=== PATIENT | male | born 1960 | race Caucasian/White ===

== ENCOUNTER 2019-01-06 14:03 | Emergency (ER) | payer SELFPAY ==
[2019-01-06 14:17] VITALS: BP 144/88
[2019-01-06] MEDS ORDERED: Ondansetron 4 MG/2 ML SDV IVPUSH ONE (14:22)
[2019-01-06] MEDS ORDERED: Sodium Chloride 0.9% 10 ML Syringe FLUSH PRN (14:22)
[2019-01-06] MEDS ORDERED: Ketorolac 30 MG/ML SDV IVPUSH ONE (14:23)
[2019-01-06] MEDS ORDERED: HYDROmorphone 1 MG/ML Syringe IVPUSH ONE ×2 (14:23→14:38)
[2019-01-06] MEDS ORDERED: Sodium Chloride 0.9% 1,000 ML IV SCH (14:30)
--- NOTE | 2019-01-06 15:34 | EDM.PDOC ---
ED HPI GENERAL MEDICAL PROBLEM - General Chief Complaint: Genitourinary Problem Stated Complaint: POSSIBLE KIDNEY STONE Time Seen by Provider: 01/06/19 14:09 Source of Information: Reports: Patient History Limitations: Reports: No Limitations - History of Present Illness INITIAL COMMENTS - FREE TEXT/NARRATIVE: The patient presents with right flank pain and right abdominal pain. This started today. He has nausea and vomiting. He has a history of kidney stones and he feels this is a kidney stone. He has no fever, chills, cough, chest pain , or shortness of breath. He has no hematuria or dysuria. Onset: Sudden Duration: Hour(s): Location: Reports: Abdomen, Back Quality: Reports: Sharp Severity: Severe Improves with: Reports: None Worsens with: Reports: None Associated Symptoms: Reports: Nausea/Vomiting. Denies: Chest Pain, Cough, Fever /Chills, Headaches, Shortness of Breath Right Abdominal Pain Score (Numeric/FACES): 9 - Related Data Allergies Allergy/AdvReac Type Severity Reaction Status Date / Time No Known Allergies Allergy Verified 01/06/19 14:09 Home Meds: Home Meds Lisinopril [Prinivil] 10 mg PO DAILY 07/28/14 [History] Viagra. 07/28/14 [History] Anti-Depressant. 01/06/19 [History] Ondansetron [Zofran ODT] 4 mg PO Q6H PRN #20 tab.dis 01/06/19 [Rx] Tamsulosin HCl [Flomax] 0.4 mg PO DAILY #7 cap.er.24h 01/06/19 [Rx] oxyCODONE HCl/Acetaminophen [Percocet 5-325 mg Tablet] 1 - 2 each PO Q6HR PRN # 20 tablet 01/06/19 [Rx] Past Medical History Cardiovascular History: Reports: Hypertension Genitourinary History: Reports: Renal Calculus Psychiatric History: Reports: Depression Social & Family History - Recreational Drug Use Recreational Drug Use: Yes Drug Use in Last 12 Months: No ED ROS GENERAL - Review of Systems Review Of Systems: See Below Constitutional: Reports: No Symptoms HEENT: Reports: No Symptoms Respiratory: Reports: No Symptoms Cardiovascular: Reports: No Symptoms Endocrine: Reports: No Symptoms GI/Abdominal: Reports: Abdominal Pain, Nausea, Vomiting. Denies: Diarrhea : Reports: Flank Pain (right). Denies: Dysuria, Hematuria Musculoskeletal: Reports: Back Pain (Right lower back pain) ED EXAM, RENAL/ - Physical Exam Exam: See Below Exam Limited By: No Limitations General Appearance: Alert, No Apparent Distress Ears: Normal External Exam Nose: Normal Inspection Head: Atraumatic, Normocephalic Neck: Normal Inspection Respiratory/Chest: No Respiratory Distress, Lungs Clear, Normal Breath Sounds Cardiovascular: Regular Rate, Rhythm, No Edema, No Murmur GI/Abdominal: Soft, Non-Tender, No Organomegaly, No Mass Back Exam: CVA Tenderness (R) Extremities: Normal Inspection Neurological: Alert, Oriented, No Motor/Sensory Deficits Course - Vital Signs Last Recorded V/S: Last Vital Signs Temp 97.7 F 01/06/19 14:10 Pulse 91 01/06/19 14:10 Resp 17 01/06/19 14:10 BP 144/88 H 01/06/19 14:10 Pulse Ox 100 01/06/19 14:10 - Orders/Labs/Meds Orders: Active Orders 24 hr Category Date Time Status Peripheral IV Care [RC] . DIRECTED Care 01/06/19 14:22 Active Sodium Chloride 0.9% [Normal Saline] 1,000 ml Med 01/06/19 14:30 Active IV ASDIRECTED Sodium Chloride 0.9% [Saline Flush] Med 01/06/19 14:22 Active 10 ml FLUSH ASDIRECTED PRN ED Antiemetic Medication Reflex [OM.PC] Stat Oth 01/06/19 14:22 Ordered Peripheral IV Insertion Adult [OM.PC] Stat Oth 01/06/19 14:22 Ordered Medication Orders Sodium Chloride (Normal Saline) 1,000 mls @ 125 mls/hr IV ASDIRECTED PIERRE Last Admin: 01/06/19 14:31 Dose: 125 mls/hr Sodium Chloride (Saline Flush) 10 ml FLUSH ASDIRECTED PRN PRN Reason: Keep Vein Open Last Admin: 01/06/19 14:32 Dose: 10 ml Labs: Laboratory Tests 01/06/19 01/06/19 01/06/19 Range/Units 14:20 14:20 14:55 WBC 10.16 H (4.23-9.07) K/mm3 RBC 5.22 (4.63-6.08) M/mm3 Hgb 15.4 (13.7-17.5) gm/L Hct 44.0 (40.1-51.0) % MCV 84.3 (79.0-92.2) fl MCH 29.5 (25.7-32.2) pg MCHC 35.0 (32.2-35.5) g/dl RDW Std Deviation 37.1 (35.1-43.9) fL Plt Count 196 (163-337) K/mm3 MPV 10.0 (9.4-12.3) fl Neut % (Auto) 83.2 H (34.0-67.9) % Lymph % (Auto) 10.1 L (21.8-53.1) % [place] % (Auto) 3.9 L (5.3-12.2) % Eos % (Auto) 2.1 (0.8-7.0) Baso % (Auto) 0.4 (0.1-1.2) % Neut # (Auto) 8.45 H (1.78-5.38) K/mm3 Lymph # (Auto) 1.03 L (1.32-3.57) K/mm3 [place] # (Auto) 0.40 (0.30-0.82) K/mm3 Eos # (Auto) 0.21 (0.04-0.54) K/mm3 Baso # (Auto) 0.04 (0.01-0.08) K/mm3 Sodium 138 (136-145) mEq/L Potassium 3.8 (3.5-5.1) mEq/L Chloride 102 (98-107) mEq/L Carbon Dioxide 29 (21-32) mEq/L Anion Gap 10.8 (5-15) BUN 12 (7-18) mg/dL Creatinine 1.4 H (0.7-1.3) mg/dL Est Cr Clr Drug Dosing 63.49 mL/min Estimated GFR (MDRD) 52 (>60) mL/min BUN/Creatinine Ratio 8.6 L (14-18) Glucose 218 H (74-106) mg/dL Calcium 9.1 (8.5-10.1) mg/dL Total Bilirubin 1.1 H (0.2-1.0) mg/dL AST 25 (15-37) U/L ALT 52 (16-63) U/L Alkaline Phosphatase 77 (46-116) U/L Total Protein 7.6 (6.4-8.2) g/dl Albumin 3.9 (3.4-5.0) g/dl Globulin 3.7 gm/dL Albumin/Globulin Ratio 1.1 (1-2) Lipase 106 (73-393) U/L Urine Color Veronique H (Yellow) Urine Appearance Slt cloudy H (Clear) Urine pH 5.5 (5.0-8.0) Ur Specific [place] > or = 1.030 (1.005-1.030) Urine Protein 2+ H (Negative) Urine Glucose (UA) Negative (Negative) Urine Ketones Negative (Negative) Urine Occult Blood 3+ H (Negative) Urine Nitrite Negative (Negative) Urine Bilirubin 1+ H (Negative) Urine Urobilinogen 1.0 (0.2-1.0) Ur Leukocyte Esterase Negative (Negative) Urine RBC 75-100 H (0-5) /hpf Urine WBC 0-5 (0-5) /hpf Ur Epithelial Cells 0-5 (0-5) /hpf Urine Bacteria Moderate H (FEW) /hpf Urine Mucus Moderate H (FEW) /hpf Meds: Medications Generic Name Dose Route Start Last Admin Trade Name Freq PRN Reason Stop Dose Admin Sodium Chloride 1,000 mls @ 125 mls/hr 01/06/19 14:30 01/06/19 14:31 Normal Saline IV 125 mls/hr ASDIRECTED PIERRE Administration Sodium Chloride 10 ml 01/06/19 14:22 01/06/19 14:32 Saline Flush FLUSH 10 ml ASDIRECTED PRN Administration Keep Vein Open Discontinued Medications Generic Name Dose Route Start Last Admin Trade Name Fredante PRN Reason Stop Dose Admin Hydromorphone HCl 0.5 mg 01/06/19 14:23 01/06/19 14:32 Dilaudid IVPUSH 01/06/19 14:24 0.5 mg ONETIME ONE Administration Hydromorphone HCl 0.5 mg 01/06/19 14:38 Dilaudid IVPUSH 01/06/19 14:39 ONETIME ONE Ketorolac Tromethamine 30 mg 01/06/19 14:23 01/06/19 14:32 Toradol IVPUSH 01/06/19 14:24 30 mg ONETIME ONE Administration Ondansetron HCl 4 mg 01/06/19 14:22 01/06/19 14:32 Zofran IVPUSH 01/06/19 14:23 4 mg ONETIME ONE Administration - Re-Assessments/Exams Free Text/Narrative Re-Assessment/Exam: 01/06/19 15:30 I ordered an IV NS at 125mL/hr, zofran 4mg IV, dilaudid 0.5mg, labs, UA and a CT of his abdomen and pelvis without contrast. 01/06/19 16:59 His WBC was elevated at 10.16. His creatinine was elevated at 1.4. His glucose was 218. His UA has blood but no UTI. His CT shows 5mm obstructing stone within the proximal to mid right ureter. This stone located at the approximate L4-5 disc level. 3 to 4 nonobstructing calculi within the right kidney. Other incidental findings. His pain is better but not gone. I will give him some more dilaudid. Departure - Departure Time of Disposition: 17:05 Disposition: Home, Self-Care 01 Condition: Good Clinical Impression: Kidney stone, Ureteral calculus, right, Ureteral colic - Discharge Information *PRESCRIPTION DRUG MONITORING PROGRAM REVIEWED*: No *COPY OF PRESCRIPTION DRUG MONITORING REPORT IN PATIENT OUSMANE: No Prescriptions: oxyCODONE HCl/Acetaminophen [Percocet 5-325 mg Tablet] 1 - 2 each PO Q6HR PRN # 20 tablet PRN Reason: Pain Ondansetron [Zofran ODT] 4 mg PO Q6H PRN #20 tab.dis PRN Reason: Nausea\vomiting Tamsulosin HCl [Flomax] 0.4 mg PO DAILY #7 cap.er.24h Referrals: James Leon PA-C [Primary Care Provider] - Sourav Mclean MD [Physician] - 1 Week Forms: ED Department Discharge Additional Instructions: Drink plenty of fluids. Take the flomax daily. Take the percocet as needed for pain. Take the zofran as needed for nausea and vomiting. Please return if you are worse. Follow up with Dr Mclean a urologist in [place] if you are not better in a week or follow up with your urologist. - My Orders Last 24 Hours: My Active Orders 01/06/19 14:22 Peripheral IV Care [RC] . DIRECTED Sodium Chloride 0.9% [Saline Flush] 10 ml FLUSH ASDIRECTED PRN ED Antiemetic Medication Reflex [OM.PC] Stat Peripheral IV Insertion Adult [OM.PC] Stat 01/06/19 14:30 Sodium Chloride 0.9% [Normal Saline] 1,000 ml IV ASDIRECTED - Assessment/Plan Last 24 Hours: My Active Orders 01/06/19 14:22 Peripheral IV Care [RC] . DIRECTED Sodium Chloride 0.9% [Saline Flush] 10 ml FLUSH ASDIRECTED PRN ED Antiemetic Medication Reflex [OM.PC] Stat Peripheral IV Insertion Adult [OM.PC] Stat 01/06/19 14:30 Sodium Chloride 0.9% [Normal Saline] 1,000 ml IV ASDIRECTED
--- NOTE | 2019-01-06 16:09 | CT ---
CT abdomen and pelvis Technique: Multiple axial sections were obtained from above the kidneys inferiorly through the pubic symphysis. Intravenous and oral contrast was not utilized. Study has been performed as a ureteral stone protocol. Comparison: Prior CT stone protocol exam dated 06/18/13. Findings: Right sided proximal hydronephrosis is seen caused by an obstructing stone measuring 5 mm which is located within the proximal to mid ureter at the level of the L4-5 disc. No additional ureteral calculi are seen. 3 or 4 small nonobstructing calculi are seen within the right kidney. Left kidney shows no abnormal calcifications. Small parapelvic cyst is noted within the lower left kidney measuring approximately 1.3 cm. No additional abnormality is appreciated within the kidneys. Small portion of the visualized posterior lung bases are clear. Visualized noncontrast appearance of the liver and spleen appears within normal limits. Incidental note of calcified granulomas within the spleen. Adrenal glands show no nodule. Pancreas is within normal limits. Gallbladder contains no calcified gallstones. Aorta shows no aneurysm. No retroperitoneal adenopathy or mesenteric abnormalities are seen. No pelvic mass or adenopathy is seen. Appendix is seen which is normal in size. No free fluid or inflammatory change is seen. Bone window settings were reviewed which show severe disc space narrowing and vacuum phenomenon at L5-S1. Degenerative spurring is seen into the right L5-S1 neural foramina causing stenosis. Impression: 1. 5 mm obstructing stone within the proximal to mid right ureter. This stone located at the approximate L4-5 disc level. 2. 3 or 4 nonobstructing calculi within the right kidney. 3. Other incidental findings as noted above. Diagnostic code #3
== END 2019-01-06 17:20 | disposition home or self-care (01) ==
LOC: JD.ED 14:03
DX: N20.2 Calculus of kidney with calculus of ureter (principal); I10 Essential (primary) hypertension
CPT/HCPCS: 36415; 74176; 80053; 81001; 83690; 85025; 96361; 96374; 96375; 96376; 99284; J1170; J1885; J2405; J7040